=== PATIENT | male | born 1995 | race Two or more races ===

== ENCOUNTER 2025-07-16 09:31 | Outpatient (AMB) | payer OTHER, SELFPAY ==
--- NOTE | 2025-07-16 09:33 | A.OFFPC_ITS ---
Vital Signs 07/16/25 09:40 Height 5 ft 8 in Weight 196 lb 2 oz BMI 29.8 BP 106/62 Blood Pressure Location Rt brachial Position Sitting Respiration 14 Pulse 90 Pulse Source Pulse Oximeter Temp 98.2 F Temp Source Temporal Artery Scan Pulse Oximetry (%) 98 Oxygen Delivery Method Room Air Intake Visit Reasons: CPE? Intake Note: Alden presents in the office today to establish care. Allergies No Known Allergies Allergy (Verified 07/16/25 09:36) Medication List - Last Reconciled 07/16/25 by MUNIRA Arellano aspirin 81 mg PO DAILY clopidogrel (Plavix) 75 mg PO DAILY Tobacco use date assessed: 07/16/25 Dental Screening Dental Screen Date: 07/16/25 Did you have a dental visit in the last 12 months?: Yes Did you have a dental problem in the last 6 months where you did not have access to dental care?: No Was dental information given to patient?: Patient has dentist HPI HPI Comments History of Present Illness Details This is a 30 year old female with congenital heart disease presenting to establish care. He moved from [place] to [place] in January 2025. 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 The patient has congenital aortic stenosis and aortic regurgitation. He was previously followed at [facility] by Dr. Nereida Cevallos. The patient underwent Ross procedure (replacement or aortic valve with patient's pulmonary valve and donor valve used to replace the pulmonary valve). 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 His last follow up was in January there, and he was supposed to follow up in July again. He has a cardiology appointment at [place], Dr. Lyle Rios. To expedite this he needs an echocardiogram done. Patient is on Plavix and Aspirin. He endorses improved stamina since surgery. He has minimal SOB with exercise which is stable and improved since surgery. Denies chest pain, pedal edema, palpitations. Nonsmoker. No alcohol. ROS: Constitutional: No unexplained weight loss, fever, chills, fatigue or night sweats. Eyes: No vision changes, blurry vision, double vision, eye pain, eye redness, eye discharge. ENT: No hearing loss, sneezing, congestion, runny nose or sore throat. Respiratory: No cough or wheezing. Cardiovascular: No chest pain, chest pressure or chest discomfort. No palpitations or pedal edema. Gastrointestinal: No anorexia, nausea, vomiting or diarrhea. No abdominal pain or blood in stool. Genitourinary: No dysuria, hematuria, urinary frequency. Denies testicular lumps. Neurologic: No headache, dizziness, syncope, unilateral weakness, ataxia, numbness or tingling in the extremities. Musculoskeletal: No muscle pain, back pain, joint pain or swelling. Hematologic/Lymphatics: +Easy bruising. No painful lymph nodes. Skin: No rash Endocrine: No cold or heat intolerance. No polyuria or polydipsia. Psychiatric: No depression or anxiety. No SI/HI. Physical exam: Constitutional: Alert, in no distress. Head: Normocephalic. Eyes: Pupils are equal, round and reactive to light. Extraocular muscles intact. Ear, Nose and Throat: Canals clear. TMs normal. Normal nasal mucosa. No nasal discharge. No oral lesions. Neck: Supple, Full range of motion. No lymphadenopathy. No palpable thyroid masses. Respiratory: Clear to auscultation. Cardiovascular: S1 S2 regular. III/ murmur. Gastrointestinal: Abdomen soft, non-tender, non-distended. Normal bowel sounds. No palpable masses. Genitourinary: Deferred. Neurologic: No focal neurological deficits. Symmetric patellar reflexes. Moves all extremities spontaneously. Skin: No rashes Musculoskeletal: No gross deformities. Normal range of motion. Extremities: Warm and well perfused. No clubbing, cyanosis or edema. Intact peripheral pulses bilaterally. Psychiatric: Normal mood and affect [facility] Medical History (Updated 07/16/25 @ 21:45 by MUNIRA Arellano) Routine physical examination Asthma Screening for cardiovascular condition Congenital heart disease Surgical History (Updated 07/16/25 @ 21:45 by MUNIRA Arellano) History of open heart surgery History of Ross procedure Social History (Updated 07/16/25 @ 09:40 by Farheen Avelar CMA) Housing: Apartment Alcohol intake: current Patient Tobacco Use Status: Never used Tobacco e-Cigarette/Vaping Use: Never Used Second Hand Smoke Exposure: No service: No Current occupational status: employed Current occupation: [employer] Current occupational exposures/hazards: Yes Cognitive needs: No Hearing needs: No Vision needs: Yes Questionnaire PHQ-9 Over the last 2 weeks, how often have you been bothered by any of the following problems? 1. Little interest or pleasure in doing things: not at all 2. Feeling down, depressed, or hopeless: not at all 3. Trouble falling or staying asleep, or sleeping too much: not at all 4. Feeling tired or having little energy: not at all 5. Poor appetite or overeating: not at all 6. Feeling bad about yourself - or that you are a failure or have let yourself or your family down: not at all 7. Trouble concentrating on things, such as reading the newspaper or watching television: not at all 8. Moving or speaking so slowly that other people could have noticed. Or the opposite - being so fidgety or restless that you have been moving around a lot more than usual: not at all 9. Thoughts that you would be better off or of hurting yourself in some way: not at all Total score: 0 Depression Screening Interpretation: Negative Depression Screening Done: Yes 98208 - PHQ-9 Billing: Yes Source: Developed by Drs. Lyle Go, Britni Perez, Yeison Peralta and colleagues, with an educational belinda from [employer]. Thrive Questionnaire Date Thrive assessed: 07/16/25 I am a: Patient What is your living situation today?: I have a steady place to live Within the past 12 months, did the food you bought not last and you didn't have the money to get more?: I choose not to answer this question Within the past 12 months, did you worry whether your food would run out before you got money to buy more?: I choose not to answer this question Do you have trouble paying for medicines?: I choose not to answer this question Do you have trouble getting transportation to medical appointments?: No Do you have trouble paying your heating and electricity bill?: I choose not to answer this question Do you have trouble taking care of your child, family member or friend?: No Do you have trouble with day-to-day activities such as bathing, preparing meals, shopping, managing finances, etc.?: No Are you currently unemployed and looking for a job?: No Are you interested in more education?: Yes Please select the resources that you would like help with: None Currently or been in a relationship where the following occur: No concerns reported THRIVE Score: 0 AUDIT C Alcohol Use Questionnaire (AUDIT-C) 1. How often do you have a drink containing alcohol?: Monthly or less 2. How many drinks containing alcohol do you have on a typical day when you are drinking?: 1 or 2 3. How often do you have six or more drinks on one occasion?: Less than monthly Total Score: 2 JENNIFER-7 AMB Questionnaire JENNIFER-7 Date JENNIFER - 7 assessed: 07/16/25 Feeling nervous, anxious, or on edge: 0 = Not at all Not being able to stop or control worryin = Not at all Worrying too much about different things: 0 = Not at all Trouble relaxin = Not at all Being so restless that it is hard to sit still: 0 = Not at all Becoming easily annoyed or irritable: 0 = Not at all Feeling afraid as if something awful might happen: 0 = Not at all Total JENNIFER-7 score (0-4 normal; 5-9 mild; 10-14 moderate; 15-21 severe): 0 Source: Developed by Drs. Lyle Go, Britni Perez, Yeison Peralta and colleagues, with an educational belinda from [employer]. JENNIFER-7 Assessment Billing JENNIFER-7 Assessment Tool: JENNIFER-7 Assessment 23176 Physical exam (Primary Care) Vital Signs: Last Vital Signs Temp 98.2 F 07/16/25 09:40 Pulse 90 07/16/25 09:40 Resp 14 07/16/25 09:40 BP 106/62 07/16/25 09:40 Pulse Ox 98 07/16/25 09:40 Oxygen Delivery Method Room Air 07/16/25 09:40 BMI result Body Mass Index 29.8 Tobacco/Smoking Status: Tobacco use Status Tobacco use date assessed 07/16/25 07/16/25 09:43 Patient Tobacco Use Status Never used Tobacco 07/16/25 09:40 e-Cigarette/Vaping Use Never Used 07/16/25 09:43 PHQ-9: PHQ-9 Score PHQ-9: Total score 0 07/16/25 10:05 Depression Screening Interpretation: Negative Thrive Assessment: Date of Thrive Assessment Date Thrive assessed 07/16/25 07/16/25 09:35 Currently or been in a relationship where the following occur: No concerns reported Coding Level of Care Code New Pt Prev Care 18-39yr(94623 Diagnoses Routine physical examination Z00.00 Congenital heart disease Q24.9 Screening for cardiovascular condition Z13.6 Additional Codes JENNIFER-7 Assessment Billing - JENNIFER-7 Assessment Tool: JENNIFER-7 Assessment 55651 ([id number]) PHQ-9 - 46201 - PHQ-9 Billing: Yes ([id number]) Assessment & Plan Assessment & Plan (1) Routine physical examination: Code(s): Z00.00 - Encounter for general adult medical examination without abnormal findings Category: Medical Plan: Patient is seen today for a routine physical. As part of this visit we reviewed the following issues, which are considered and essential part of preventative health in this age group: - Testicular cancer screening, which includes self exam teaching - Blood pressure screening - Cholesterol screening - Counseling of injury prevention including fire prevention, smoke alarms and seat belt usage - Screening for depression - Recommendations about immunizations - Recommendation of an eye exam - Screening for substance abuse (2) Congenital heart disease: Comment: Aortic valve stenosis, aortic regurgitation Code(s): Q24.9 - Congenital malformation of heart, unspecified Category: Medical Plan: Urgent echo ordered to expedite cardiology consult at [facility] (patient was due to follow up July after relocating from [place]). Continue Plavix and aspirn. (3) Screening for cardiovascular condition: Code(s): Z13.6 - Encounter for screening for cardiovascular disorders Category: Medical Plan Schedule CPE in 1 year. Orders: Orders CA echo transthoracic complete Today Q24.9 - Congenital malformation of heart, unspecified Lipid Panel Today Z13.6 - Encounter for screening for cardiovascular disorders Complete Blood Count no Diff Today Z13.6 - Encounter for screening for cardiovascular disorders Comprehensive Met. Panel Today Z13.6 - Encounter for screening for cardiovascular disorders
[2025-07-16 09:40] VITALS: BP 106/62; PULSE 90; RESP 14; TEMP 36.8; O2SAT 98; BMI 29.8
--- OUTSIDE RECORDS SUMMARY | 2025-07-16 11:01 | XMS_ITS | Encounter Summary ---
Author Organization [facility] Address [address] [place] [phone] Care Team Providers Care Acid Adjuster Name Role Phone Pcp, Does Not Have A Primary Care Provider Unava ilable Encounter Details Date Type Department Care Team (Late st Contact Info) Description 05/08/2025 Scanned Document [facility] Cardiology [address] [address] External, Provider Social History Tobacco Use Types Packs/Day Years Used Date Smoking Tobacco: Never Assessed Sex and Gender Information Value Date Recorded Sex Assigned at Not on file Legal Sex Male 10:19 AM EDT Gender Identity Not on file Sexual Orientation Not on file documented as of this encounter Plan of Treatment Upcoming Encounters Date Type Department Care Team (Late st Contact Info) Description 11/19/2025 2:15 PM EDT Appointment [facility] Cardiac Services [address] [place] [phone] 11/19/2025 3:00 PM EDT Office Visit Cardiovascular Medicine at [address] [place] [phone] Lyle Rios Jr., MD [address] [place] [phone] documented as of this encounter Visit Diagnoses Not on filedocumented in this encounter Care Teams Acid Adjuster Relationship Specialty Start Date End Date Pcp, Does Not Have A PCP - General 04/29/25 documented as of this encounter
--- OUTSIDE RECORDS SUMMARY | 2025-07-16 11:01 | XMS_ITS | Clinical Summary ---
Author Organization [address] Address [address] [place] [phone] Phone Care Team Providers Care Staff Climate Scientist Name Role Phone Pcp, Does Not Have A Primary Care Provider Unava ilable Encounters Date Type Department Care Team Description 05/08/2025 Scanned Document [facility] Cardiology [address] [address] External, Provider 05/08/[address] [address] Lyle Rios Jr., MD Appointment from Last 3 Months Social History Tobacco Use Types Packs/Day Years Used Date Smoking Tobacco: Never Assessed Sex and Gender Information Value Date Recorded Sex Assigned at Not on file Legal Sex Male 10:19 AM EDT Gender Identity Not on file Sexual Orientation Not on file Plan of Treatment Upcoming Encounters Date Type Department Care Team ([facility] st Contact Info) Description 11/19/2025 2:15 PM EDT Appointment [facility] Cardiac Services [address] [place] [phone] 11/19/2025 3:00 PM EDT Office Visit Cardiovascular Medicine at [address] [place] [phone] Lyle Rios Jr., MD [address] [place] [phone] Health Maintenance Due Date Last Done Comments HIV screening 2007 Hepatitis C screening 2012 Tetanus adult (Td q 10,TDAP once) 2014 Influenza vaccine 04/03/2025 Covid-19 vaccine series (2024- season) 2025 RSV Immunization (1 - 1-dose 75+ series) 2069 Meningococcal B Vaccine Aged Out No l onger eligible based on patient's age to complete this topic Meningococcal Vaccine Aged Out No belkis clayton eligible based on patient's age to complete this topic Pneumococcal Vaccine (2 - 49 years) Aged Out No longer eligible based on patient's age to complete this topic Insurance Member Subscriber Plan / Payer (Ef fective 2024-Present) Name:Alden Mason Relation to Subscriber:Self Name:Alden Mason Payer ID:[id number] (NAIC) Type:Not on file Address: [facility] [address] [phone] Care Teams Staff Climate Scientist Relationship Specialty Start Date End Date Pcp, Does Not Have A PCP - General 04/29/25
== END 2025-07-16 10:29 | disposition home or self-care (01) ==
LOC: HO.HMCFM 09:32
PROVIDERS: Visit Provider Physician Assistant Medical
DX: Z00.00 Encounter for general adult medical examination without abnormal findings (principal); Q24.9 Congenital malformation of heart, unspecified; Z13.6 Encounter for screening for cardiovascular disorders

== ENCOUNTER → 2025-07-16 09:31 | Outpatient (BNVA) | payer OTHER, SELFPAY | PROVIDERS: Visit Provider Physician Assistant Medical | DX: Z76.89 Persons encountering health services in other specified circumstances (principal); Q23.0 Congenital stenosis of aortic valve; Q23.1 Congenital insufficiency of aortic valve; Z79.02 Long term (current) use of antithrombotics/antiplatelets; Z79.82 Long term (current) use of aspirin; Z13.31 Encounter for screening for depression; Z13.39 Encounter for screening examination for other mental health and behavioral disorders | CPT/HCPCS: 96127 ==

== ENCOUNTER → 2025-07-22 10:04 | Outpatient (REF) | payer OTHER, SELFPAY ==
--- NOTE | 2025-07-22 10:07 | CA_ITS ---
Transthoracic Echocardiogram Patient (Last, First, Middle): Alden Mason, Gender: M Date of : 1995 Age: 30 Procedure Date: 07/22/2025 Procedure Type: Transthoracic Echocardiogram Location: OP Height: 172.72 cm Weight: 88.91 kg BSA: 2.03 m2 Heart Rate: bpm BP: 112 / 80 mmHg Internal Security Manager: BAILEY Referring MD: Becky LOMBARDO Symptoms: Q24.9 - Congenital malformation of heart, unspecified Study Quality: Adequate ECG Rhythm: Sinus Conclusions: - The left ventricular systolic function is mildly decreased. The calculated ejection fraction is 52% by biplane method. - Normally functioning aortic valve status post Ross procedure. - Gradients across the pulmonic valve peak-38mm Hg; mean-21mmHg. Per history, s/p pulmonary valve replacement. Correlate with prior gradients. Findings Left Ventricle Normal left ventricular cavity size. The left ventricular systolic function is mildly decreased. The calculated ejection fraction is 52% by biplane method. There is no evidence of regional wall motion abnormalities. There is paradoxical septal motion consistent with post-operative status. Diastolic function is normal for age. There is mild septal and mild basal asymmetric hypertrophy. Right Ventricle Mildly increased right ventricular cavity size. There is mildly decreased right ventricular systolic function. Atria Both atria are normal in size. Aortic Valve The aortic valve was not well visualized. There is no aortic valve stenosis. The mean gradient is 4 mmHg. There is trace (trivial) aortic valve regurgitation. Mitral Valve The mitral valve appears normal. There is trace mitral valve regurgitation. There is no mitral valve stenosis. Pulmonic Valve Gradients across the pulmonic valve peak-38mm Hg; mean-21mmHg. Per history, s/p pulmonary valve replacement. Correlate with prior gradients. Tricuspid Valve There is trace tricuspid valve regurgitation. There is no evidence of pulmonary hypertension. Great Vessels The asc aorta and aortic arch are normal in size. Venous The inferior vena cava is normal in size and collapses greater than 50% with inspiration. Pericardium/Pleural There is no evidence of pericardial effusion. Prior Study Comparison No prior study available for comparison. Measurements 2D Linear Measurements IVSd: 0.69 0.6-0.9/0.6-1.0 cm LVIDd: 4.01 3.9-5.3/4.2-5.9 cm LVIDd Index: 1.98 2.4-3.2/2.2-3.1 cm/m2 LVIDs: 2.98 2.0-3.6 cm LVPWd: 0.92 0.7-1.1 cm LA Diam: 3.20 2.7-3.8/3.0-4.0 cm LAIDs Index: 1.58 1.5-2.3 cm/m2 LV Mass: 117.64 67-162/88-224 g LV Mass Index: 57.95 43-95/49-115 g/m2 LVOT Diam: 2.50 3.0+(-)1.3 cm 2D Systolic Function EF 4C: 56.50 >55% EF 2C: 50.20 >55% EF BiP: 52.20 >55% Mitral Valve MV Pk E: 0.93 MV PK A: 0.60 MV Decel Time: 197.00 E/A: 1.60 E'Lateral: 12.60 E'Medial: 9.03 E/E' Med: 10.20 E/E' Lat: 7.30 PHT: 58.00 MVA PHT: 3.79 Decel [place]: 4.70 Aortic Valve AoV Pk Travon: 1.21 AoV Mn Travon: 0.93 AoV VTI: 0.26 AoV Pk Grad: 6.00 Aov Mn Grad: 4.00 [place] Cont.VTI: 3.39 LVOT LVOT Pk Travon: 0.80 LVOT Mn Travon: 0.59 LVOT VTI: 0.18 LVOT Pk Grad: 3.00 LVOT Mn Grad: 2.00 LVOT Diam: 2.50 LVOT Area: 4.91 Diastolic Function MV Pk E: 0.93 MV Pk A: 0.60 E/A: 1.60 E'Medial: 9.03 E/E' Med: 10.20 E' Laterial: 12.60 E/E' Lat: 7.30 Right Ventricle TAPSE (mm): 16.00 TVS' Travon: 8.18 Tricuspid Valve TR Pk Travon: 2.16 TR Pk Grad: 19.00 Great Vessels Aorta Ao Asc: 3.40 2.1-3.4 cm Ao Arch: 3.00 Pulmonary Veins Pulm Vein S/D 0.50 Pulmonary Valve PV Pk Travon: 3.12 PV Min Travon: 2.14 Peak PV Grad: 39.00 PV Mn Grad: 21.00 Shunting QP:QS: 1.00 Updated in Other Vendor System with Status of Final Dallas Rosenthal MD electronically signed on 07/23/2025 3:24:21 PM with status of Final
--- OUTSIDE RECORDS SUMMARY | 2025-07-22 19:00 | XMS_ITS | Clinical Summary ---
Author Organization [address] Address [address] [place] [phone] Phone Care Team Providers Care Manager Recruiting Name Role Phone Pcp, Does Not Have A Primary Care Provider Unava ilable Encounters Date Type Department Care Team Description 05/08/2025 Scanned Document [facility] Cardiology [address] [address] External, Provider 05/08/[address] [address] Lyle Rios Jr., MD Appointment from Last 3 Months Social History Tobacco Use Types Packs/Day Years Used Date Smoking Tobacco: Never Assessed Sex and Gender Information Value Date Recorded Sex Assigned at Not on file Legal Sex Male 10:19 AM EDT Gender Identity Not on file Sexual Orientation Not on file Plan of Treatment Upcoming Encounters Date Type Department Care Team ([facility] st Contact Info) Description 11/19/2025 2:15 PM EDT Appointment [facility] Cardiac Services [address] [place] [phone] 11/19/2025 3:00 PM EDT Office Visit Cardiovascular Medicine at [address] [place] [phone] Lyle Rios Jr., MD [address] [place] [phone] Health Maintenance Due Date Last Done Comments [...] Payer ID:[id number] (NAIC) Type:Not on file Address: [facility] [address] [phone] Care Teams Manager Recruiting Relationship Specialty Start Date End Date Pcp, Does Not Have A PCP - General 04/29/25
--- OUTSIDE RECORDS SUMMARY | 2025-07-22 19:00 | XMS_ITS | Encounter Summary ---
Author Organization [facility] Address [address] [place] [address] Care Team Providers Care Allergist Immunologist Name Role Phone Pcp, Does Not Have A Primary Care Provider Unava ilable Encounter Details Date Type Department Care Team (Late st Contact Info) Description 05/08/2025 Scanned Document [facility] Cardiology [address] [address] External, Provider Social History Tobacco Use Types [...] Info) Description 11/19/2025 2:15 PM EDT Appointment [facility] Cardiac Services [address] [place] [phone] 11/19/2025 3:00 PM EDT Office Visit Cardiovascular Medicine at [address] [place] [phone] Lyle Rios Jr., MD [address] [place] [phone] documented as of this encounter Visit Diagnoses Not on filedocumented in this encounter Care Teams Allergist Immunologist Relationship Specialty Start Date End Date Pcp, Does Not Have A PCP - General 04/29/25 documented as of this encounter
== END ==
LOC: HO.CARD 10:04
PROVIDERS: PCP Physician Assistant Medical; Visit Provider Physician Assistant Medical
DX: Q24.9 Congenital malformation of heart, unspecified (principal)
CPT/HCPCS: 93306

== ENCOUNTER → 2025-07-22 10:07 | Outpatient (BNV) | payer OTHER, SELFPAY | PROVIDERS: PCP Physician Assistant Medical; Visit Provider Internal Medicine | DX: Q24.9 Congenital malformation of heart, unspecified (principal); Z95.2 Presence of prosthetic heart valve | CPT/HCPCS: 93306 ==